=== PATIENT | female | born 1945 | race African-American/Black ===

== ENCOUNTER 2020-11-24 14:43 | Emergency (ER) | payer OTHER ==
[~2020-11-24] VITALS: Ht 170.2 cm; Wt 90.0 kg
[2020-11-24] MEDS ORDERED: METO-396 PO (15:14)
[2020-11-24] MEDS ORDERED: AMIT10TA6 PO (15:14)
[2020-11-24] MEDS ORDERED: GABA-532 PO (15:14)
[2020-11-24] MEDS ORDERED: IBUP-2029 PO (15:14)
[2020-11-24] MEDS ORDERED: SACU1TAB MT (15:14)
[2020-11-24] MEDS ORDERED: LEVO50TA8 PO (15:14)
[2020-11-24] MEDS ORDERED: TRAM50TA3 PO (15:14)
[2020-11-24] MEDS ORDERED: HYDROCODONE/ACETAMINOPHEN 5/325MG TABLET PO ONE (16:15)
[2020-11-24] MEDS ORDERED: MORPHINE SULFATE 2 MG/ML CPJ (NOT FOR IM USE) IV ONE (17:30)
[2020-11-24] MEDS ORDERED: ONDANSETRON HCL 4MG/2ML INJ IV ONE (17:30)
[2020-11-24 20:46] LABS: BASOPHILS % 0.5 % (0.0-2.0); EOSINOPHILS % 2.6 % (0.0-5.0); HEMATOCRIT. 31.8 % (36.0-48.0); HEMOGLOBIN. 10.6 g/dL (12.0-16.0); LYMPHOCYTES % 23.8 % (20.0-50.0); MEAN CORPUSCULAR VOLUME 93.3 fL (81.0-99.0); MONOCYTES % 8.3 % (2.0-8.0); NEUTROPHILS % 64.8 % (40.0-76.0); PLATELET 140 x1000/uL (130-400); RED BLOOD CELL COUNT 3.41 mill/uL (4.2-5.4); RED CELL DISTRIBUTION WIDTH 14.8 % (11.6-14.6)
[2020-11-24 20:52] LABS: CHLORIDE 109 mEq/L (98-107)
[2020-11-24 20:54] LABS: PARTIAL THROMBOPLASTIN TIME < 21.0 sec (23.4-31.0); PROTHROMBIN TIME 11.1 sec (9.6-11.0)
[2020-11-24] MEDS ORDERED: MORPHINE SULFATE 4 MG/ML CPJ (NOT FOR IM USE) IV ONE (21:00)
[2020-11-24] MEDS ORDERED: HYDROMORPHONE HCL/PF 2MG/ML CPJ IV ONE (22:15)
[2020-11-24] MEDS ORDERED: HYDROMORPHONE HCL/PF 2MG/ML CPJ IV PRN (23:15)
[2020-11-25 04:00] VITALS: BP 99/53
== END 2020-11-25 04:52 | disposition short-term general hospital (02) ==
LOC: ER 14:43 → CANBEDREQ 22:16 → ER 11-25 04:52
DX: S72.001A Fracture of unspecified part of neck of right femur, initial encounter for closed fracture (principal); M97.01XA Periprosthetic fracture around internal prosthetic right hip joint, initial encounter; W18.39XA Other fall on same level, initial encounter; Y93.89 Activity, other specified; Y92.89 Other specified places as the place of occurrence of the external cause; Y99.8 Other external cause status; I48.91 Unspecified atrial fibrillation; I10 Essential (primary) hypertension; E05.90 Thyrotoxicosis, unspecified without thyrotoxic crisis or storm; Z79.899 Other long term (current) drug therapy; Z20.822 Contact with and (suspected) exposure to COVID-19
CPT/HCPCS: 36415; 73502; 80048; 85025; 85610; 85730; 87426; 96374; 96375; 96376; 99285; J1170; J2270; J2405